=== PATIENT | male | born 1965 | race Caucasian/White ===

== ENCOUNTER → 2022-01-12 | Outpatient (REF) ==
[~2022-01-12] MED LIST: AMBI10TA; EFFE150C; PROZ10CA; VALI5TAB
== END ==
LOC: M RAD 08:42
PROVIDERS: ATTEND Family Medicine
DX: M43.16 Spondylolisthesis, lumbar region (principal); M51.36 Other intervertebral disc degeneration, lumbar region; M51.37 Other intervertebral disc degeneration, lumbosacral region; M25.461 Effusion, right knee; M25.861 Other specified joint disorders, right knee